=== PATIENT | male | born 1985 | race Caucasian/White ===

== ENCOUNTER 2016-12-19 08:53 | Emergency (ER) | payer OTHER ==
--- NOTE | ~2016-12-19 | CR63 ---
[facility] A Service of [facility] & [facility] RADIOLOGY TEXT RESULTS PATIENT: WON ESCOTO LOCATION: CFTX : 89 UNIT #: [id number] AGE: [address]: Kristina Ambriz SEX: M ORDER DR: [id number] [facility] [address] [place], [place] [address] [id number] E MR#: [id number] Acc #: [id number] NAME: WON ESCOTO : 1985 SEX: M STUDY DATE/TIME: 12/19/2016 8:40 UNIT: [facility] ROOM: STUDY DESCRIPTION: CR Chest 2 View Attending Physician: Kristina Ambriz P.A.-C. Ordering Physician: Kristina Ambriz P.A.-C. Primary Care Physician: Primary Care Physician No MEDICAL IMAGING REPORT This report is preliminary unless electronic signature is present EXAM PA and lateral chest, 12/19/2016 at 08:40 HISTORY 31-year-old male with cough and sinus infection for 2 days. COMPARISON PA and lateral chest 01/08/2010. CT Abdomen Lung windows 05/26/2016. FINDINGS No acute airspace disease. Heart size within normal limits. No pleural effusion or pneumothorax or acute osseous abnormalities identified. IMPRESSION No acute cardiopulmonary findings. Dictated by... Daphne De Oliveira M.D. THIS IS AN ELECTRONICALLY VERIFIED REPORT Daphne De Oliveira M.D. at 12/20/2016 8:33 AM ZHOU/sebastien TD: 12/19/2016 11:27 JOB #: [id number] MEDICAL IMAGING REPORT Page 1 of 1 COPY
[~2016-12-19 08:53] MED LIST: BACTRIM DS TABL1 TA1 PO; CIPROFLOXA PO; FLOMAX0.4 M1 DOB; NO MEDICATIONS; NORCO1 TAB 10/3 PO; PHENERGAN12.5 M1 PO; SYNTHROID125 PO
== END 2016-12-19 10:19 | disposition home or self-care (01) ==
LOC: CFTX 08:53
DX: J20.9 Acute bronchitis, unspecified (principal); Z87.442 Personal history of urinary calculi; F17.210 Nicotine dependence, cigarettes, uncomplicated
CPT/HCPCS: 71020; 94640; 99283; 99284